=== PATIENT | female | born 1940 | race African-American/Black ===

== ENCOUNTER 2018-12-25 19:32 | Emergency (ER) | payer MEDICARE, OTHER ==
[~2018-12-25] VITALS: Ht 162.6 cm; Wt 86.2 kg
[2018-12-25 19:55] VITALS: BP 121/70
--- NOTE | 2018-12-25 19:56 | ED Cardiac General ---
History of Present Illness General Chief Complaint: Cardiac/General Problems Stated Complaint: LOW BP Source: patient Exam Limitations: no limitations History of Present Illness Date Seen by Provider: Dec 25, 2018 Time Seen by Provider: 19:52 Initial Comments Patient is a 78-year-old -[place] female presents with concern for low blood pressure readings. Patient is currently on blood pressure medication routinely checks her blood pressure throughout the day. This evening, the patient to consecutive blood pressure readings with systolic blood pressure less than 95. Patient denies dizziness lightheadedness shortness of breath or any other symptoms during the day or after checking blood pressure. No recent changes to blood pressure medications. Blood pressure is normal on ED arrival, 125/71. Patient denies symptoms or complaints at this time. Timing/Duration: 4-6 hours Severity: mild Activities at Onset: rest Allergies and Home Medications Patient Home Medication List Home Medication List Reviewed: Yes Review of Systems Review of Systems Constitutional: no symptoms reported EENTM: No Symptoms Reported Respiratory: No Symptoms Reported Cardiovascular: No Symptoms Reported Gastrointestinal: No Symptoms Reported Genitourinary: No Symptoms Reported Musculoskeletal: no symptoms reported Skin: no symptoms reported Psychiatric/Neurological: No Symptoms Reported Past Chlpdvy-Dwdntm-Joojlx Hx Patient Social History Alcohol Use: Denies Use Recreational Drug Use: No Smoking Status: Never a Smoker 2nd Hand Smoke Exposure: No Recent Foreign Travel: No Contact w/Someone Who Travel: No Recent Hopitalizations: No Physical Abuse: No Sexual Abuse: No Mistreated: No Past Medical History Surgeries: No Respiratory: No Cardiac: No Neurological: No Genitourinary: No Gastrointestinal: No Musculoskeletal: No Endocrine: No HEENT: No Cancer: No Psychosocial: No Integumentary: No Blood Disorders: No Physical Exam Vital Signs Capillary Refill : Height, Weight, BMI Height: '" Weight: lbs. oz. kg; BMI Method: General Appearance: WD/WN HEENT: PERRL/EOMI, Normal ENT Inspection Neck: Full Range of Motion Respiratory: Lungs Clear, Normal Breath Sounds, No Accessory Muscle Use, No Respiratory Distress Cardiovascular: Regular Rate, Rhythm Neurologic/Psychiatric: Alert, Oriented x3, No Motor/Sensory Deficits Skin: Normal Color Focused Exam Sepsis Stage: Ruled Out Departure Communication (Admissions) Patient asymptomatic with normal blood pressure and ED. Patient reassured and instructed hold blood pressure medication if symptomatic and to follow up with PCP as needed. Impression Primary Impression: Encounter for medical screening examination Disposition: HOME, SELF-CARE Condition: Improved Departure-Patient Inst. Patient Instructions: Your Normal Heart Add. Discharge Instructions: If you feel lightheaded or dizzy and your blood pressure is low, hold your next dose of blood pressure medication contact your physician the next day. All discharge instructions reviewed with patient and/or family. Voiced understanding. DANYELLE CORTEZ DO Dec 25, 2018 19:56
== END 2018-12-25 19:54 | disposition home or self-care (01) ==
LOC: ER FS 19:33
DX: R03.1 Nonspecific low blood-pressure reading (principal)
CPT/HCPCS: 99283

== ENCOUNTER 2019-07-08 11:30 | Outpatient (CLI) | payer MEDICARE, OTHER ==
[~2019-07-08] VITALS: Ht 165 cm; Wt 86.8 kg
[~2019-07-08 11:30] MED LIST: ALPR0.5T7 PO; ASPI-586 PO; FAMO20TA3 PO; FURO20TA4 PO; HYDR12.56 PO; LEVO50TA6 PO; LISI40TA PO; METO100T12 PO; PARO20TA5 PO; SIMV40TA25 PO
== END 2019-07-08 12:06 | disposition home or self-care (01) ==
LOC: PREOP 11:30
PROVIDERS: ATTEND Surgery
DX: Z01.818 Encounter for other preprocedural examination (principal)

== ENCOUNTER 2019-07-11 07:40 | Day surgery (SDC) | payer MEDICARE, OTHER ==
[~2019-07-11] VITALS: Ht 165 cm; Wt 86.8 kg
[2019-07-11] MEDS ORDERED: LACTATED RINGERS 1,000 ML IV STA (07:47)
[2019-07-11] MEDS ORDERED: LACTATED RINGERS 1,000 ML IV ONE (07:55)
[2019-07-11 08:07] VITALS: BP 117/69
[2019-07-11] MEDS ORDERED: PROPOFOL INJECTION 50 ML IV ONE (09:28)
--- NOTE | 2019-07-11 09:42 | Progress Note-Pre Operative ---
Pre-Operative Progress Note H&P Reviewed The H&P was reviewed, patient examined and no changes noted. Time Seen by Provider: 09:36 Date H&P Reviewed: Jul 11, 2019 Time H&P Reviewed: 09:36 Pre-Operative Diagnosis: Hx of colon cancer MARCO GARCIA DO Jul 11, 2019 09:42
[2019-07-11 10:05] VITALS: BP 80/53
--- NOTE | 2019-07-11 10:06 | Progress Note-Post Operative ---
Post-Operative Progess Note Surgeon (s)/Quick Technician (s) Surgeon MARCO GARCIA DO Quick Technician: none Pre-Operative Diagnosis Hx of colon cancer Post-Operative Diagnosis Diverticula Int hemorrhoids Procedure & Operative Findings Date of Procedure 07/11/19 Procedure Performed/Findings Colonoscopy Anesthesia Type IV sedation by ASSEMBLER FISHING FLOATS Estimated Blood Loss Estimated blood loss (mL): none Specimens/Packing Specimens Removed none MARCO GARCIA DO Jul 11, 2019 10:06
--- NOTE | 2019-07-11 10:08 | Endoscopy Discharge Instruct ---
Endo Procedure/Findings Findings 1.: Diverticulosis 2.: Internal Hemorrhoids Discharge Instructions - Activity: You might feel a little sleepy until tomorrow. This is due to the medicine you received to relax you. Until tomorrow, you should: NOT drive a car, operate machinery or power tools. NOT drink any alcoholic beverages. NOT make any important decisions or sign importortant papers. Do not return to work until tomorrow, unless otherwise instructed. Resume previous activities tomorrow. Diet: Start by taking liquids. If you tolerate liquids, advance to solid food. make an appointment for one week. 1.: Colonscopy in 5 years Notify Physician - If you experience excessive bleeding, unusual abdominal pain, fever, or chest pain, contact your doctor immediately. MARCO GARCIA DO Jul 11, 2019 10:08
[2019-07-11 10:10] VITALS: BP_SYST 80; BP_SYST 83; BP_DIAS 50; BP_DIAS 52
[2019-07-11 10:40] VITALS: BP 95/59
[2019-07-11 11:05] VITALS: BP 95/59
--- NOTE | 2019-07-11 11:41 | Anesthesia-General Post-Op ---
MAC Patient Condition Mental Status/LOC: Same as Preop Cardiovascular: Satisfactory Nausea/Vomiting: Absent Respiratory: Satisfactory Pain: Controlled Complications: Absent Post Op Complications Complications None Follow Up Care/Instructions Patient Instructions None needed. Anesthesiology Discharge Order Discharge Order Patient is doing well, no complaints, stable vital signs, no apparent adverse anesthesia problems. No complications reported per nursing. ABHIEJET FRASER CRNA Jul 11, 2019 11:40
--- NOTE | 2019-07-11 13:32 | OPERATIVE REPORT ---
DATE OF SERVICE: 07/11/2019 PREOPERATIVE DIAGNOSIS: History of colon cancer, need for surveillance colonoscopy. POSTOPERATIVE DIAGNOSES: Diverticula, internal hemorrhoids. PROCEDURE: Colonoscopy. SURGEON: William Thakur DO CLUBHOUSE MANAGER: None. ANESTHESIA: IV sedation by the INSIDE WIRER. SPECIMENS: None. BLOOD LOSS: None. FLUIDS: Per anesthesia. POSTOPERATIVE CONDITION: Stable. INDICATION FOR PROCEDURE: The patient is a 78-year-old female, who had a colon resection for cancer 11 years ago and is needing a surveillance colonoscopy. FINDINGS: The patient had some large diverticula in the left side, but no polyps seen and some small internal hemorrhoids. PROCEDURE NOTE: After informed consent was obtained, the patient was brought to the endoscopy suite and placed in the bed in left lateral decubitus position. She was administered IV sedation by the INSIDE WIRER who then monitored her vitals the entire time, heart rate, blood pressure and pulse ox and the scope was inserted, pushed all the way about 120 cm, able to get all the way to the anastomosis of the colon and the terminal ileum, took a picture of this, got into the terminal ileum, took a picture on the way in, and noted some diverticula, took a picture of this and then slowly withdrew the scope from this anastomosis insufflating to look circumferentially at the morales. This was most likely a part of the ascending colon as well as then transverse colon to the splenic flexure, down the descending colon into the sigmoid and finally into the rectum. Again, saw some large diverticula throughout the descending colon and sigmoid colon and then down into the rectum, retroflexed the rectal vault, saw some minimal internal hemorrhoids and then removed the scope. The patient tolerated the procedure, recovered in endoscopy suite. Job ID: [id number] DocumentID: [id number] Dictated Date: 07/11/2019 10:05:35 Centrifuge Operator Date: 07/11/2019 13:31:08 Dictated By: WILLIAM THAKUR DO
== END 2019-07-11 11:05 | disposition home or self-care (01) ==
LOC: ENDO 07:40
PROVIDERS: ATTEND Surgery
DX: Z12.11 Encounter for screening for malignant neoplasm of colon (principal); Z85.038 Personal history of other malignant neoplasm of large intestine; K57.30 Diverticulosis of large intestine without perforation or abscess without bleeding; K64.8 Other hemorrhoids; Z90.49 Acquired absence of other specified parts of digestive tract; E66.9 Obesity, unspecified; K27.9 Peptic ulcer, site unspecified, unspecified as acute or chronic, without hemorrhage or perforation; F41.9 Anxiety disorder, unspecified; F32.9 Major depressive disorder, single episode, unspecified; Z79.82 Long term (current) use of aspirin; Z79.899 Other long term (current) drug therapy; I10 Essential (primary) hypertension; E78.5 Hyperlipidemia, unspecified; K21.9 Gastro-esophageal reflux disease without esophagitis; Z68.32 Body mass index [BMI] 32.0-32.9, adult

== ENCOUNTER → 2019-07-23 | Outpatient (CLI) | payer MEDICARE, OTHER ==
--- NOTE | 2019-07-23 11:56 | Diagnostic Imaging Report ---
Left knee at 11:44. Indication: Knee pain 3 views were obtained. There are no prior studies available for comparison. There is no fracture, dislocation or acute bony abnormality evident. The lateral view does show that there is severe degenerative disease of the patellofemoral space. There is also at least moderate degenerative disease of the medial compartment of the knee joint. There is mild degenerative changes involving the lateral compartment. The soft tissues are unremarkable. Impression: 1. There is no evidence for an acute bony abnormality. 2. There is degenerative disease involving the knee joint with the patellofemoral space the most severely affected. Dictated by: Dictated on workstation # [id number]
== END ==
LOC: RAD FS 11:40
PROVIDERS: ATTEND Nurse Practitioner Family
DX: M17.12 Unilateral primary osteoarthritis, left knee (principal)
CPT/HCPCS: 73562

== ENCOUNTER → 2020-11-19 | Outpatient (CLI) | payer MEDICARE, OTHER ==
[~2020-11-19] MED LIST changes: -LISI40TA PO; +LISI40TA9 PO
--- NOTE | 2020-11-19 11:03 | Diagnostic Imaging Report ---
INDICATION: Low back and right hip pain. FINDINGS: 3 views. FINDINGS: There is mild anterior listhesis of L3 on L4. Alignment is otherwise good. Body height is well maintained. There is advanced degenerative disc disease at L4-L5 with loss of disc space height and dense sclerotic endplates. Hypertrophic lipping of the endplates noted as well. No evidence of pars defect. Mild degenerative facet changes. Mild sclerotic change along the SI joint. IMPRESSION: 1. Rather advanced degenerative disc and facet disease L4-L5 with sclerotic Modic changes. 2. No acute abnormalities demonstrated. Dictated by: Dictated on workstation # [id number]
--- NOTE | 2020-11-19 11:05 | Diagnostic Imaging Report ---
INDICATION: Right hip pain 2 views of the right hip show narrowing of the joint space, the right hip with osteophytes forming at the margins of the articular surfaces. IMPRESSION: Moderate degenerative changes right hip. No fracture or dislocation. Dictated by: Dictated on workstation # [id number]
== END ==
LOC: RAD FS 10:31
PROVIDERS: ATTEND Nurse Practitioner Family
DX: M47.816 Spondylosis without myelopathy or radiculopathy, lumbar region (principal); M51.36 Other intervertebral disc degeneration, lumbar region; M16.11 Unilateral primary osteoarthritis, right hip
CPT/HCPCS: 72100; 73502

== ENCOUNTER 2022-02-04 19:32 | Emergency (ER) | payer MEDICARE, OTHER ==
[~2022-02-04] VITALS: Ht 164.5 cm; Wt 84.5 kg
[2022-02-04 19:36] VITALS: BP 147/60
[2022-02-04] MEDS ORDERED: oxyCODONE/APAP 5/325MG (PERCOCET 5) TABLET PO ONE (20:00)
[2022-02-04] MEDS ORDERED: AUGMENTIN 875 MG TAB (AMOXICILLIN/CLAVULANATE) PO SCH (20:00)
--- NOTE | 2022-02-04 20:14 | ED EENT ---
History of Present Illness General Chief Complaint: Dental Problems/Pain Stated Complaint: TOOTH PAIN Nursing Triage Note: Pt states that she has been having right lower jaw and tooth pain that has been ongoing x 4 days with intermittent pain that she states is unbearable. She has an appt with her dentist on February 10. Source: patient Exam Limitations: no limitations History of Present Illness Date Seen by Provider: Feb 04, 2022 Time Seen by Provider: 19:30 Initial Comments Patient is an 17-year-old -[place]er female who presents with subman dibular dental pain rating to her right ear starting 3 days ago. No medications or therapies taken prior to ED arrival. Pain is intermittent rated moderate to severe. Patient has dental follow-up in the next 10 days. No dysphonia, drooling or trismus. No other acute symptoms or pain complaints Timing/Duration: gradual Severity: moderate Location: other Prearrival Treatment: other Modifying Factors: Improves With Other Allergies and Home Medications Allergies Coded Allergies: No Known Drug Allergies (Unverified , 07/08/19) Patient Home Medication List Home Medication List Reviewed: Yes Alprazolam (Alprazolam) 0.5 Mg Tablet, 0.5 MG PO TID PRN for ANXIETY, (Reported) Entered as Reported by: LAURI FRAZIER on 07/08/19 105 Aspirin (Aspir 81) 81 Mg Tablet.dr, 81 MG PO DAILY, (Reported) Entered as Reported by: LAURI FRAZIER on 07/08/19 105 Famotidine (Acid Business Analyst Project Manager (FAMOTIDINE)) 20 Mg Tablet, 20 MG PO BID, (Reported) Entered as Reported by: LAURI FRAZIER on 07/08/19 105 Furosemide (Furosemide) 20 Mg Tablet, 20 MG PO DAILY, (Reported) Entered as Reported by: LAURI FRAZIER on 07/08/19 105 Hydrochlorothiazide (Hydrochlorothiazide) 12.5 Mg Tablet, 12.5 MG PO DAILY, (Reported) Entered as Reported by: LAURI FRAZIER on 07/08/19 105 Levothyroxine Sodium (Levothyroxine Sodium) 50 Mcg Tablet, 50 MCG PO DAILY, (Reported) Entered as Reported by: LAURI FRAZIER on 07/08/19 105 Lisinopril (Lisinopril) 40 Mg Tablet, 40 MG PO DAILY, (Reported) Entered as Reported by: LAURI FRAZIER on 07/08/19 1052 Metoprolol Tartrate (Metoprolol Tartrate) 100 Mg Tablet, 100 MG PO DAILY, (Reported) Entered as Reported by: LAURI FRAZIER on 07/08/19 1052 Paroxetine HCl (Paroxetine HCl) 20 Mg Tablet, 20 MG PO DAILY, (Reported) Entered as Reported by: LAURI FRAZIER on 07/08/19 1052 Simvastatin (Simvastatin) 40 Mg Tablet, 40 MG PO DAILY, (Reported) Entered as Reported by: LAURI FRAZIER on 07/08/19 1052 Review of Systems Review of Systems Constitutional: see HPI Eyes: See HPI Throat: see HPI Respiratory: see HPI Cardiovascular: see HPI Gastrointestinal: see HPI Musculoskeletal: see HPI Skin: see HPI Neurological: See HPI Hematologic/Lymphatic: See HPI Immunological/Allergic: see HPI All Other Systems Reviewed Negative Unless Noted: No Past Xukchme-Jyscgf-Gywyor Hx Patient Social History Tobacco Use?: No Use of E-Cig and/or Vaping dev: No Substance use?: No Alcohol Use?: No Pt feels they are or have been: No Immunizations Up To Date Tetanus Booster (TDap): Unknown Influenza Vaccine Up-to-Date: Yes; Up-to-Date Seasonal Allergies Seasonal Allergies: Yes Past Medical History Surgeries: Yes (LIPOMA REMOVED FROM UNDER ARM, COLECTOMY) Hysterectomy Respiratory: No Cardiac: Yes High Cholesterol, Hypertension 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 Sexually Transmitted Disease: No HIV/AIDS: No Genitourinary: No Gastrointestinal: Yes (HX COLON CANCER) Gastroesophageal Reflux, Ulcer Musculoskeletal: Yes (RIGHT KNEE) Arthritis Endocrine: Yes Hypothyroidsim HEENT: No Loss of Vision: Denies Hearing Impairment: Denies Cancer: Yes Colon Did You Recieve Any Treatments: Yes What Type of Treatment Did You: Chemotherapy, Surgical Intervention Psychosocial: Yes (FAMILY STRESS) Sleep Difficulties Integumentary: No Blood Disorders: No Adverse Reaction/Blood Tranf: No (N/A) Physical Exam Vital Signs Vital Signs - First Documented 02/04/22 19:36 Temp 36.3 Pulse 62 Resp 18 B/P (MAP) 147/60 (89) Pulse Ox 100 O2 Delivery Room Air Height, Weight, BMI Height: 5'4.00" Weight: 190lbs. oz. 86.985541jb; 31.00 BMI Method:Stated General Appearance: WD/WN, no apparent distress Eyes: bilateral eye normal inspection, bilateral eye PERRL Ears: bilateral ear auricle normal, bilateral ear canal normal Nose: normal inspection Mouth/Throat: dental tenderness (Anterior lower incisor tenderness), other Neck: non-tender, full range of motion, supple Progress/Results/Core Measures Results/Orders My Orders Orders - DANYELLE CORTEZ DO Oxycodone/Apap 5/325mg Tablet (Percocet (02/04/22 20:00) Amoxicillin/Clavulanate Tablet (Augmenti (02/04/22 20:00) Vital Signs/I&O 02/04/22 19:36 Temp 36.3 Pulse 62 Resp 18 B/P (MAP) 147/60 (89) Pulse Ox 100 O2 Delivery Room Air Blood Pressure Mean: 89 Departure Communication (Admissions) Dental pain secondary to caries without complication. Impression Primary Impression: Pain due to dental caries Disposition: HOME, SELF-CARE Condition: Stable Departure-Patient Inst. Decision time for Depature: 20:12 Referrals: FAVIAN NOLASCO APRN (PCP/Family) Primary Care Physician Patient Instructions: Dental Pain Add. Discharge Instructions: All discharge instructions reviewed with patient and/or family. Voiced understanding. Scripts Penicillin V Potassium (Penicillin V Potassium) 500 Mg Tablet 500 MG PO QID, #40 TAB Prov: DANYELLE CORTEZ DO 02/04/22 Hydrocodone/Acetaminophen (Hydrocodone-Acetamin 5-325 mg) 5 Mg-325 Mg Tablet 1 TAB PO Q4H PRN for PAIN-MODERATE (5-7), #10 TAB Prov: DANYELLE CORTEZ DO 02/04/22 DANYELLE CORTEZ DO Feb 04, 2022 20:14
[2022-02-04] MEDS ORDERED: PENI500T PO (20:15)
[2022-02-04] MEDS ORDERED: ACHD5005 PO (20:15)
== END 2022-02-04 20:55 | disposition home or self-care (01) ==
LOC: EDUNIT# 19:32 → ER FS 19:33
DX: K02.9 Dental caries, unspecified (principal)
CPT/HCPCS: 99283

== ENCOUNTER 2022-12-27 18:11 | Emergency (ER) | payer MEDICARE, OTHER ==
[~2022-12-27] VITALS: Ht 165 cm; Wt 68.0 kg
[~2022-12-27 18:11] MED LIST changes: +ACHD5005 PO; +PENI500T PO
--- NOTE | 2022-12-27 18:35 | ED Fall/Injury ---
General Chief Complaint: Trauma-Non Activation Stated Complaint: FELL,HIT HEAD Nursing Triage Note: FELL AT HOME HITTING HER HEAD. DENIES LOC. DENIES NECK PAIN. DENIES BEING ON BLOOD THINNERS. Source: patient History of Present Illness Date Seen by Provider: Dec 27, 2022 Time Seen by Provider: 18:13 Initial Comments 82-year-old female presenting with complaints of falling and hitting her head. She states that she had been on an extended phone call for over 3 hours and when she stood up she had felt weak and fell to the floor. She hit her head but denies loss of consciousness. She denies having a headache, neck pain, blurred vision, nausea, vomiting, numbness or tingling in her arms or legs other than he r chronic neuropathy. She did not lose consciousness when she fell but stated that she heard a pop and was worried that she may have injured something. 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 However today she had a cell phone that was in the other room that was ringing while she was on the 1 phone call and she had stood up and tried walking to the other room to get the cell phone without taking time to let her body adjust to changing positions. She did call EMS and they had evaluated her on scene and she had declined transport due to the cost. She states that she has a history of high blood pressure and that it takes 3 medicines to help control it. Occurred: this evening Injuries/Pain Location: no injury Context: lightheaded Loss of Consciousness: no loss of consciousness Associated Symptoms (Fall): No Abdominal Pain, No Chest Pain, No Confusion, No Dizziness, No Headache, No Lightheadedness, No Muscle Spasms, No Nausea/Vomiting, No Neck Pain, No Ringing in Ears, No Seizures, No Shortness of Air, No Slurred Speech, No Trouble Walking, No Vision Changes Allergies and Home Medications Allergies Coded Allergies: No Known Drug Allergies (Unverified , 07/08/19) Patient Home Medication List Home Medication List Reviewed: Yes Alprazolam (Alprazolam) 0.5 Mg Tablet, 0.5 MG PO TID PRN for ANXIETY, (Reported) Entered as Reported by: LAURI FRAZIER on 07/08/19 6294 Aspirin (Aspir 81) 81 Mg Tablet.dr, 81 MG PO DAILY, (Reported) Entered as Reported by: LAURI FRAZIER on 07/08/19 105 Famotidine (Acid Soaping Department Supervisor (FAMOTIDINE)) 20 Mg Tablet, 20 MG PO BID, (Reported) Entered as Reported by: LAURI FRAZIER on 07/08/191051 Furosemide (Furosemide) 20 Mg Tablet, 20 MG PO DAILY, (Reported) Entered as Reported by: LAURI FRAZIER on 07/08/191051 Hydrochlorothiazide (Hydrochlorothiazide) 12.5 Mg Tablet, 12.5 MG PO DAILY, (Reported) Entered as Reported by: LAURI FRAZIER on 07/08/191051 Hydrocodone/Acetaminophen (Hydrocodone-Acetamin 5-325 mg) 5 Mg-325 Mg Tablet, 1 TAB PO Q4H PRN for PAIN-MODERATE (5-7) Prescribed by: DANYELLE CORTEZ on 02/04/222015 Levothyroxine Sodium (Levothyroxine Sodium) 50 Mcg Tablet, 50 MCG PO DAILY, (Reported) Entered as Reported by: LAURI FRAZIER on 07/08/191051 Lisinopril (Lisinopril) 40 Mg Tablet, 40 MG PO DAILY, (Reported) Entered as Reported by: LAURI FRAZIER on 07/08/191051 Metoprolol Tartrate (Metoprolol Tartrate) 100 Mg Tablet, 100 MG PO DAILY, (Reported) Entered as Reported by: LAURI FRAZIER on 07/08/191051 Paroxetine HCl (Paroxetine HCl) 20 Mg Tablet, 20 MG PO DAILY, (Reported) Entered as Reported by: LAURI FRAZIER on 07/08/191051 Penicillin V Potassium (Penicillin V Potassium) 500 Mg Tablet, 500 MG PO QID Prescribed by: DANYELLE CORTEZ on 02/04/222014 Simvastatin (Simvastatin) 40 Mg Tablet, 40 MG PO DAILY, (Reported) Entered as Reported by: LAURI FRAZIER on 07/08/19 105 Review of Systems Review of Systems Constitutional: No chills, No diaphoresis, No dizziness, No fever Eyes: Denies Blurred Vision, Denies Photophobia, Denies Vision Changes Ears, Nose, Mouth, Throat: denies ear pain, denies ear discharge, denies nose pain, denies nose discharge, denies epistaxis Respiratory: no symptoms reported Cardiovascular: no symptoms reported Gastrointestinal: no symptoms reported Genitourinary: no symptoms reported Musculoskeletal: no symptoms reported Skin: no symptoms reported Psychiatric/Neurological: No Symptoms Reported Past Fjwkuvl-Iryjip-Kpzile Hx Immunizations Up To Date Tetanus Booster (TDap): Unknown Seasonal Allergies Seasonal Allergies: Yes Past Medical History Surgery/Hospitalization HX: Hypertension, chronic neuropathy Surgeries: Yes (LIPOMA REMOVED FROM UNDER ARM, COLECTOMY) Hysterectomy Respiratory: No Cardiac: Yes High Cholesterol, Hypertension Neurological: 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 Sexually Transmitted Disease: No HIV/AIDS: No Genitourinary: No Gastrointestinal: Yes (HX COLON CANCER) Gastroesophageal Reflux, Ulcer Musculoskeletal: Yes (RIGHT KNEE) Arthritis Endocrine: Yes Hypothyroidsim HEENT: No Loss of Vision: Denies Hearing Impairment: Denies Cancer: Yes Colon Did You Recieve Any Treatments: Yes What Type of Treatment Did You: Chemotherapy, Surgical Intervention Psychosocial: Yes (FAMILY STRESS) Sleep Difficulties Integumentary: No Blood Disorders: No Adverse Reaction/Blood Tranf: No (N/A) Physical Exam Vital Signs Vital Signs - First Documented 12/27/22 18:18 Temp 37.4 Pulse 90 Resp 16 B/P (MAP) 123/76 (92) Pulse Ox 97 O2 Delivery Room Air Capillary Refill : Less Than 3 Seconds Height, Weight, BMI Height: 5'4.00" Weight: 190lbs. oz. 86.294662ms; 24.00 BMI Method:Stated General Appearance: WD/WN, no apparent distress HEENT: PERRL/EOMI, normal ENT inspection, TMs normal, pharynx normal, other (Negative carvalho sign, negative raccoon sign, no CSF otorrhea, no CSF rhinorrhea, no hemotympanums) Neck: non-tender, full range of motion, supple, normal inspection Cardiovascular: normal peripheral pulses, regular rate, rhythm Respiratory: chest non-tender, lungs clear, normal breath sounds, no respiratory distress, no accessory muscle use Gastrointestinal: normal bowel sounds, non tender, soft, no pulsatile mass Extremities: normal range of motion, non-tender, normal capillary refill Neurologic/Psychiatric: business technology professor II-XII nml as tested, alert, normal mood/affect, oriented x 3 Skin: normal color, warm/dry [place] Coma Score Best Eye Response: (4) Open Spontaneously Best Verbal Response: (5) Oriented Best Motor Response: (6) Obeys Commands [place] Total: 15 Progress/Results/Core Measures Results/Orders Vital Signs/I&O 12/27/22 12/27/22 18:18 18:36 Temp 37.4 Pulse 90 75 Resp 16 16 B/P (MAP) 123/76 (92) 123/76 Pulse Ox 97 97 O2 Delivery Room Air Room Air Blood Pressure Mean: 92 Progress Progress Note : Progress Note Discharge patient that I did not appreciate any acute findings for a skull fracture or intracranial hemorrhage. Counseled on symptoms and findings to watch for with the minor head injury. Since she does not take a blood thinner and is not having any symptoms of severe head injury defer CT scan or imaging currently. Counseled on follow-up and return precautions. Advised to change positions slowly and semiconductor engineer 1 spot for a minute before moving to help let her body adjust with her blood pressure. Given information about orthostatic hypotension. Departure Impression Primary Impression: Orthostatic hypotension Additional Impressions: Fall at home Qualified Codes: W19.XXXA - Unspecified fall, initial encounter; Y92.009 - Unspecified place in unspecified non-institutional (private) residence as the place of occurrence of the external cause Minor head injury without loss of consciousness Qualified Codes: S09.90XA - Unspecified injury of head, initial encounter Disposition: 01 HOME, SELF-CARE Condition: Stable Departure-Patient Inst. Decision time for Depature: 18:33 Referrals: FAVIAN NOLASCO APRN (PCP/Family) Primary Care Physician Patient Instructions: Minor Head Injury, Adult ED, Orthostatic Hypotension (DC), Preventing Falls ED Add. Discharge Instructions: Make sure to go slow and take your time when you change positions especially after you have been sitting in 1 position for a while. With taking your blood pressure medications when you stand up your blood pressure can drop and could make you dizzy or weak and fall down. The neuropathy can also contribute to frequent falls. Check back with your primary care provider if having continued concerns. If you develop nausea, vomiting, blurred vision, dizziness, increasing headache then these would all be reasons to be seen again as you may benefit from a CT scan to look for any other injuries. All discharge instructions reviewed with patient and/or family. Voiced understanding. TITA SANTOYO MD Dec 27, 2022 18:35
[2022-12-27 18:36] VITALS: BP 123/76
== END 2022-12-27 18:38 | disposition home or self-care (01) ==
LOC: EDUNIT# 18:11 → ER FS 18:13
DX: S09.90XA Unspecified injury of head, initial encounter (principal); I95.1 Orthostatic hypotension; W18.30XA Fall on same level, unspecified, initial encounter; W22.8XXA Striking against or struck by other objects, initial encounter; Y92.009 Unspecified place in unspecified non-institutional (private) residence as the place of occurrence of the external cause
CPT/HCPCS: 99281

== ENCOUNTER 2023-03-15 08:58 | Day surgery (SDC) | payer MEDICARE, OTHER ==
[~2023-03-15] VITALS: Ht 162.6 cm; Wt 80.6 kg
[~2023-03-15 08:58] MED LIST changes: +ALPR0.254 PO; +APIX5TAB PO; +ASPI-1238 PO; +ATOR10TA66 PO; +FAMO-356 PO; -FAMO20TA3 PO; +PARO10TA3 PO
[2023-03-15] MEDS ORDERED: LIDOCAINE 2% VISCOUS 15 ML UDC ONE (09:24)
[2023-03-15] MEDS ORDERED: NS IV 1000 ML 1,000 ML ONE (09:24)
[2023-03-15] MEDS ORDERED: NS IV 1000 ML 1,000 ML IV SCH (09:30)
[2023-03-15 09:52] LABS: HEMATOCRIT 39 % (35-52); HEMOGLOBIN 12.5 g/dL (11.5-16.0); MEAN CORPUSCULAR HEMOGLOBIN 30 pg (25-34); MEAN CORPUSCULAR HGB CONC 32 g/dL (32-36); MEAN CORPUSCULAR VOLUME 93 fL (80-99); MEAN PLATELET VOLUME 9.2 fL (9.0-12.2); PLATELET COUNT 319 10^3/uL (130-400); WHITE BLOOD COUNT 6.7 10^3/uL (4.3-11.0)
[2023-03-15 09:53] VITALS: BP 106/82
--- NOTE | 2023-03-15 10:05 | Diagnostic Imaging Report ---
INDICATION: Transesophageal echocardiogram and conversion. COMPARISON: 01/25/2023. FINDINGS: Cardiomediastinal and hilar contours are stable and unremarkable. No pneumothorax or pneumomediastinum. No pleural fluid. Lungs clear. IMPRESSION: No acute appearing abnormality. Dictated by: Dictated on workstation # [id number]
[2023-03-15 10:11] LABS: ALBUMIN 4.1 GM/DL (3.2-4.5); BILIRUBIN,TOTAL 1.7 MG/DL (0.1-1.0); CALCIUM 9.2 MG/DL (8.5-10.1); CREATININE SERUM 1.3 MG/DL (0.60-1.30); INR 1.1 (0.8-1.4); POTASSIUM 3.7 MMOL/L (3.6-5.0); PROTHROMBIN TIME PATIENT 14.8 SEC (12.2-14.7); TOTAL PROTEIN 7.2 GM/DL (6.4-8.2)
[2023-03-15] MEDS ORDERED: proPOfol INJECTION 200 MG/20 ML VIAL IV ONE (10:11)
[2023-03-15] MEDS ORDERED: LIDOCAINE 2% VISCOUS 15 ML UDC PO ONE (10:18)
--- NOTE | 2023-03-15 10:19 | Cardiac Procedure Note-CS/ASA ---
Pre-Procedure Note Pre-Op Procedure Note Date of Available H&P: Feb 20, 2023 Date H&P Reviewed: Mar 15, 2023 Time H&P Reviewed: 10:18 History & Physical: H&P Reviewed, Patient Examed, No changes noted Pre-Operative Diagnosis: A fib Moderate Sedation PreProcedure Time 10:18 ASA Score 3 Airway Lungs Heart ASA score ASA 1: a normal healthy patient ASA 2: a patient with a mild systemic disease (mid diabetes, controlled hypertension, obesity ASA 3: a patient with a severe systemic disease that limits activity (angina, COPD, prior Myocardial infarction) ASA 4: a patient with an incapacitating disease that is a constant threat to life (CHF, renal failure) ASA 5: a moribund patient not expected to survive 24 hrs. (ruptured aneurysm) ASA 6: a declared brain- patient whose organs are being harvested. For emergent operations, add the letter E after the classification Mallampati Classification Grade 3 Sedation Plan Analgesia, Amnesia, Plan communicated to team members, Discussed options with patient/fam, Discussed risks with patient/fam The patient is an appropriate candidate to undergo the planned procedure, sedation, and anesthesia. The patient immediately re-assessed prior to indication. ROBBIE VILLATORO MD Mar 15, 2023 10:18
[2023-03-15] MEDS ORDERED: CETI10TA17 PO (10:20)
[2023-03-15] MEDS ORDERED: ATOR10TA66 PO (10:20)
[2023-03-15] MEDS ORDERED: ALPR0.5T7 PO (10:20)
[2023-03-15] MEDS ORDERED: APIX5TAB PO (10:20)
[2023-03-15] MEDS ORDERED: FLEC50TA PO (10:53)
--- NOTE | 2023-03-15 10:53 | Discharge Inst-Post CATH ---
Discharge Inst-CATH/EP Problems Reviewed?: Yes Post Cardiac Cath/EP D/C Inst Follow Up/Plan Appointment with Dr. Blanchard's office in 1 to 2 weeks <b>CARDIAC CATH/EP PROCEDURE DISCHARGE INSTRUCTIONS</b> ACTIVITY * Go Home directly and rest. * Limit activity of the leg (or wrist if it was used) for 7 days including aer obics, swimming, jogging, bicycling, etc. * Restrict stair-climbing for 7 days if possible, if not, climb up with your non-cath leg, then bring together on the same step. * Avoid lifting, pushing, pulling or excessive movement of the affected extremi ty for 7 days. * Customary sexual activity may be resumed after 2 days-use caution not to use a position that strains or causes pain to the affected extremity. * No driving for 24 hours. * NO SMOKING. * Avoid straining for bowel movements for 7 days. * Gentle walking on level ground is allowed. * Returning to work will depend on the type of procedure and the results. Your doctor will discuss this with you. CALL YOUR DOCTOR FOR ANY OF THE FOLLOWING: *If bleeding from the puncture site occurs- Apply gentle pressure to site with clean cloth and call your doctor or EMS. * If a knot or lump forms under the skin, increases in size, or causes pain. * If bruising appears to be worsening or moving further down your leg instead of disappearing. * Temperature above 101 F. CARE OF YOUR GROIN INCISION; * Bruising or purple discoloration of the skin near the puncture site is common. * You may shower only, no bathtub bathing for 5 days. Be careful to avoid slipping as your leg may feel stiff. * If a closure device was used on your femoral artery, please see the attached guide regarding care of the device and your leg. * Leave dressing on FOR 24 hours. CARE OF YOUR WRIST INCISION; * Bruising or purple discoloration of the skin near the puncture site is common. * You may shower. * DO NOT submerge wrist. * Leave dressing on FOR 24 hours. ROBBIE BLANCHARD MD Mar 15, 2023 10:53
--- NOTE | 2023-03-15 10:54 | Cardioversion ---
Cardioversion PROCEDURE PHYSICIAN: Robbie Blanchard DATE OF PROCEDURE: 03/15/23 DIRECT EXTERNAL ELECTRICAL CARDIOVERSION: Indications: Atrial Fibrillation with rapid ventricular rate Preoperative diagnoses: Atrial Fibrillation with rapid ventricular rate Postoperative diagnosis: Sinus rhythm, Successful Electrical Cardioversion History: 82-year-old lady with history of hypertension, hyperlipidemia, new onset atrial fibrillation, has been on oral anticoagulation, scheduled for VENUS with electrical cardioversion. Anesthesia: By Anesthesia services Complications: None Specimen: None Contrast: 0 Flouroscopy: none Procedure Details: The patient was brought the laborer driver after informed consent was taken, all the risks and complications were explained including the risk of stroke. Electrical cardioversion was carried out with anesthesia support with propofol. 200 joules of synchronized shock was delivered through external patches which promptly restored sinus rhythm. The patient tolerated the procedure well. Conclusions: Successful electrical cardioversion terminating atrial fibrillation with no complication Final Diagnosis: Paroxysmal atrial fibrillation Palpitation Hypertension Hyperlipidemia ROBBIE BLANCHARD MD Mar 15, 2023 10:54
--- NOTE | 2023-03-15 16:09 | Anesthesia-General Post-Op ---
MAC Patient Condition Mental Status/LOC: Same as Preop Cardiovascular: Satisfactory Nausea/Vomiting: Absent Respiratory: Satisfactory Pain: Controlled Complications: Absent Post Op Complications Complications None Follow Up Care/Instructions Patient Instructions None needed. Anesthesiology Discharge Order Discharge Order Patient was doing well this morning after the procedure with no complaints, stable vital signs, no apparent adverse anesthesia problems. No complications reported per nursing. RAJNI ARCE DO Mar 15, 2023 16:09
== END 2023-03-15 12:30 | disposition home or self-care (01) ==
LOC: CATH 08:58
PROVIDERS: ATTEND Internal Medicine Cardiovascular Disease
DX: I48.19 Other persistent atrial fibrillation (principal); I10 Essential (primary) hypertension; E78.5 Hyperlipidemia, unspecified; F41.9 Anxiety disorder, unspecified; I65.23 Occlusion and stenosis of bilateral carotid arteries; Z79.01 Long term (current) use of anticoagulants; Z79.899 Other long term (current) drug therapy; E66.9 Obesity, unspecified; I34.0 Nonrheumatic mitral (valve) insufficiency; Z68.30 Body mass index [BMI] 30.0-30.9, adult
CPT/HCPCS: 36415; 71045; 80053; 85027; 85610; 85730; 87081; 92960; 93005; 93312